=== PATIENT | male | born 1970 | race Caucasian/White ===

== ENCOUNTER 2024-08-04 00:22 | Inpatient (IN) | payer OTHER ==
[~2024-08-04] VITALS: Ht 182.9 cm; Wt 57.5 kg
[2024-08-04] MEDS ORDERED: INSU100I3 SQ (00:46)
[2024-08-04] MEDS ORDERED: GABA-529 PO (00:46)
[2024-08-04] MEDS ORDERED: ATOR40TA71 PO (00:46)
[2024-08-04 01:00] LABS: GLUCOMETER DEV NAME(LOC) ER.7; GLUCOSE,POINT OF CARE 93 MG/DL (70-110)
[2024-08-04] MEDS ORDERED: 0.9% SODIUM CHLORIDE 10 ML SYRINGE IVP PRN (01:00)
[2024-08-04] MEDS: SODIUM CHLORIDE 0.9% 1,800 ML IV ONE (01:02)
[2024-08-04 01:26] LABS: BASOPHILS % (AUTO) 2.5 % (0.0-2.0); EOSINOPHILS % (AUTO) 3.1 % (1.0-6.0); HEMATOCRIT 38.9 % (41-53); HEMOGLOBIN 12.9 g/dL (13.5-17.5); LYMPHOCYTES # (AUTO) 2.5 K/uL (1.0-4.8); LYMPHOCYTES % (AUTO) 31.2 % (22.0-44.0); MEAN CORPUSCULAR HGB CONC 33.1 G/dL (31.0-37.0); MEAN CORPUSCULAR VOLUME 91 fL (80-100); MONOCYTES # (AUTO) 0.6 K/uL (0.1-1.0); MONOCYTES % (AUTO) 7.6 % (2.0-9.0); NEUTROPHILS # (AUTO) 4.4 K/uL (1.8-7.7); NEUTROPHILS % (AUTO) 55.6 % (40.0-70.0); PLATELET COUNT (AUTO) 350 K/uL (150-450); RED BLOOD CELL COUNT(AUTO) 4.29 MIL/uL (4.50-5.90); RED CELL DISTRIBUTION WIDTH 16.6 % (11.5-14.5)
[2024-08-04 01:36] LABS: ANION GAP 5 mmol/L (8-16); CALCIUM, TOTAL 9.3 mg/dL (8.8-10.5); CARBON DIOXIDE 30 mmol/L (22-29); CHLORIDE 105 mmol/L (98-107); CREATININE 1.55 mg/dL (0.60-1.30); GLOMERULAR FILTR. RATE CALC 47 mL/min (>60); GLUCOSE,RANDOM 112 mg/dL (70-110); POTASSIUM 3.9 mmol/L (3.5-5.1); SODIUM SERUM 140 mmol/L (136-145); UREA NITROGEN, BLOOD 37 mg/dL (7-18)
[2024-08-04 01:43] LABS: TROPONIN I-HIGH SENSITIVITY 16 ng/L (<76)
[2024-08-04 01:44] LABS: PROTHROMBIN TIME 9.7 SEC (9.4-11.6)
[2024-08-04 01:50] LABS: ALANINE AMINOTRANSFERASE 17 U/L (12-78); ALBUMIN 2.8 g/dL (3.4-5.0); ALKALINE PHOSPHATASE 114 U/L (46-116); ASPARTATE AMINOTRANSFERASE 13 U/L (15-37); BILIRUBIN,TOTAL 0.2 mg/dL (0.1-1.0); TOTAL PROTEIN, SERUM 6.7 g/dL (6.4-8.2)
[2024-08-04 01:53] LABS: AMMONIA 12 umol/L (11-32)
[2024-08-04 02:01] LABS: LACTIC ACID 2.5 mmol/L (0.4-2.0)
[2024-08-04 02:02] LABS: B-TYPE NATRIURETIC PEPTIDE 129 pg/mL (0-100)
[2024-08-04 02:21] LABS: INFLUENZA TYPE A NEGATIVE FOR TYPE A (NEGATIVE); INFLUENZA TYPE B NEGATIVE FOR TYPE B (NEGATIVE)
[2024-08-04] MEDS: HALOPERIDOL LACTATE 5 MG/ML VIAL IM ONE (02:39)
[2024-08-04] MEDS: LORazepam 2 MG/ML VIAL IM ONE (02:39)
[2024-08-04] MEDS: DiphenhydrAMINE HCL 50 MG/ML VIAL IM ONE (02:39)
[2024-08-04 03:26] LABS: APPEARANCE,URINE CLEAR (CLEAR); BILIRUBIN,URINE NEGATIVE (NEGATIVE); COLOR,URINE LIGHT YELLOW (YELLOW); GLUCOSE, URINE (UA) >=1000 mg/dL (NEGATIVE); KETONES,URINE NEGATIVE (NEGATIVE); LEUKOCYTE ESTERASE ,URINE NEGATIVE (NEGATIVE); NITRATE,URINE NEGATIVE (NEGATIVE); OCCULT BLOOD,URINE TRACE (NEGATIVE); PROTEIN,URINE 300-600,SEE CONFIRM mg/dL (NEGATIVE); SPECIFIC GRAVITIY, URINE 1.028 (1.003-1.030); UROBILINOGEN,URINE <=1.0 mg/dL (<=1.0)
[2024-08-04 03:31] LABS: AMPHET/METH SCREEN,URINE POSITIVE (NEGATIVE); BARBITURATE SCREEN, URINE NEGATIVE (NEGATIVE); BENZODIAZEPINES SCREEN,URINE NEGATIVE (NEGATIVE); CANNABINOID SCREEN,URINE NEGATIVE (NEGATIVE); COCAINE SCREEN,URINE NEGATIVE (NEGATIVE); METHADONE SCREEN, URINE NEGATIVE (NEGATIVE); OPIATE SCREEN,URINE NEGATIVE (NEGATIVE); PHENCYCLIDINE SCREEN,URINE NEGATIVE (NEGATIVE)
[2024-08-04 03:35] LABS: ALCOHOL, URINE DRUG SCREEN NEGATIVE (NEGATIVE)
[2024-08-04 03:57] LABS: SULFOSALICYLIC ACID,URINE 3+ (Negative)
[2024-08-04 03:59] LABS: BACTERIA,URINE None Seen /HPF (None Seen); RBC,URINE 0-2 /HPF (0-2); SQUAMOUS EPITHELIAL CELL,UR None Seen /LPF (None Seen); WBC,URINE 0-2 /HPF (0-5)
[2024-08-04] MEDS: SODIUM CHLORIDE 0.9% 1,000 ML IV ONE (04:22)
[2024-08-04 12:50] VITALS: BP 124/66; PULSE 104; RESP 18; TEMP 99.8; O2SAT 100
[2024-08-04 15:26] VITALS: BP 135/80; PULSE 109; RESP 18; TEMP 98.3; O2SAT 100
[2024-08-04] MEDS ORDERED: DEXTROSE 50%-WATER 25 GM/50 ML SYRINGE IVP PRN (19:30)
[2024-08-04] MEDS: INSULIN LISPRO 100 UNITS/ML SQ ONE (19:56)
[2024-08-04 20:00] VITALS: BP 165/93; PULSE 82; RESP 18; TEMP 98.2; O2SAT 100
[2024-08-04] MEDS: INSULIN LISPRO 100 UNITS/ML SQ PRN (22:19)
[2024-08-04] MEDS ORDERED: ALBUTEROL SULFATE 2.5 MG/0.5 ML NEB SOLUTION NEB PRN (22:45)
[2024-08-04] MEDS ORDERED: ONDANSETRON HCL 4 MG/2 ML VIAL IVP PRN (22:45)
[2024-08-04] MEDS ORDERED: HYDROCODONE/ACETAMINOPHEN 5-325 MG TABLET PO PRN (22:45)
[2024-08-04] MEDS ORDERED: MORPHINE SULFATE 2 MG/ML SYRINGE IVP PRN (22:45)
[2024-08-04] MEDS ORDERED: BISACODYL 10 MG RECTAL RECTAL SUPPOSITORY PR PRN (22:45)
[2024-08-04] MEDS ORDERED: IPRATROPIUM BROMIDE 0.5 MG/2.5 ML NEB SOLUTION NEB PRN (22:45)
[2024-08-05] VITALS (8 sets, daily range): BP systolic 125–165; BP diastolic 60–93; PULSE 74–98; RESP 16–18; TEMP 97.5–98.4; O2SAT 95–100
[2024-08-05] MEDS: HEPARIN SODIUM,PORCINE 5,000 UNITS/ML VIAL SQ SCH
[2024-08-05] MEDS: DEXTROSE 5%-0.45% SODIUM CHL 1,000 ML IV SCH (00:12)
[2024-08-05 02:26] LABS: GLUCOMETER DEV NAME(LOC) 5S.1D; GLUCOSE,POINT OF CARE 365 MG/DL (70-110)
[2024-08-05 02:26] LABS: GLUCOMETER DEV NAME(LOC) 5S.1D; GLUCOSE,POINT OF CARE 499 MG/DL (70-110)
[2024-08-05 07:10] LABS: GLUCOMETER DEV NAME(LOC) 5S.1D; GLUCOSE,POINT OF CARE 326 MG/DL (70-110)
[2024-08-05] MEDS: PANTOPRAZOLE SODIUM 40 MG/VIAL IVP SCH (09:06)
[2024-08-05] MEDS: DOCUSATE SODIUM 100 MG CAPSULE PO SCH (09:09)
[2024-08-05] MEDS: ATORVASTATIN CALCIUM 40 MG TABLET PO SCH (09:09)
[2024-08-05] MEDS: GABAPENTIN 100 MG CAPSULE PO SCH (09:12)
[2024-08-05 11:05] LABS: GLUCOMETER DEV NAME(LOC) 5N.2C; GLUCOSE,POINT OF CARE 274 MG/DL (70-110)
[2024-08-05 16:46] LABS: BASOPHILS % (AUTO) 1.3 % (0.0-2.0); EOSINOPHILS % (AUTO) 3.6 % (1.0-6.0); HEMATOCRIT 29.8 % (41-53); HEMOGLOBIN 10.2 g/dL (13.5-17.5); LYMPHOCYTES # (AUTO) 2.2 K/uL (1.0-4.8); LYMPHOCYTES % (AUTO) 27.3 % (22.0-44.0); MEAN CORPUSCULAR HEMOGLOBIN 30.7 pg (26.0-34.0); MEAN CORPUSCULAR HGB CONC 34.3 G/dL (31.0-37.0); MEAN CORPUSCULAR VOLUME 90 fL (80-100); MONOCYTES # (AUTO) 0.7 K/uL (0.1-1.0); MONOCYTES % (AUTO) 8.9 % (2.0-9.0); NEUTROPHILS # (AUTO) 4.7 K/uL (1.8-7.7); NEUTROPHILS % (AUTO) 58.9 % (40.0-70.0); PLATELET COUNT (AUTO) 282 K/uL (150-450); RED BLOOD CELL COUNT(AUTO) 3.32 MIL/uL (4.50-5.90); RED CELL DISTRIBUTION WIDTH 16.6 % (11.5-14.5); WHITE BLOOD COUNT (AUTO) 7.9 K/uL (4.5-11.0)
[2024-08-05 16:50] LABS: GLUCOMETER DEV NAME(LOC) 5N.2C; GLUCOSE,POINT OF CARE 365 MG/DL (70-110)
[2024-08-05 16:55] LABS: CALCIUM, TOTAL 8.3 mg/dL (8.8-10.5); CREATININE 1.71 mg/dL (0.60-1.30)
[2024-08-05 17:08] LABS: ALBUMIN 2.1 g/dL (3.4-5.0); BILIRUBIN,TOTAL 0.4 mg/dL (0.1-1.0); TOTAL PROTEIN, SERUM 5.2 g/dL (6.4-8.2)
[2024-08-06] VITALS (7 sets, daily range): BP systolic 117–165; BP diastolic 47–111; PULSE 78–102; RESP 16–20; TEMP 97.8–100.9; O2SAT 96–100
[2024-08-06 06:46] LABS: GLUCOMETER DEV NAME(LOC) 5S.1D; GLUCOSE,POINT OF CARE 190 MG/DL (70-110)
[2024-08-06 06:46] LABS: GLUCOMETER DEV NAME(LOC) 5S.1D; GLUCOSE,POINT OF CARE 216 MG/DL (70-110)
[2024-08-06 07:08] LABS: BASOPHILS % (AUTO) 0.5 % (0.0-2.0); EOSINOPHILS % (AUTO) 1.4 % (1.0-6.0); HEMATOCRIT 32.6 % (41-53); HEMOGLOBIN 10.7 g/dL (13.5-17.5); LYMPHOCYTES # (AUTO) 0.9 K/uL (1.0-4.8); LYMPHOCYTES % (AUTO) 6.9 % (22.0-44.0); MEAN CORPUSCULAR HGB CONC 32.9 G/dL (31.0-37.0); MEAN CORPUSCULAR VOLUME 91 fL (80-100); MONOCYTES # (AUTO) 0.6 K/uL (0.1-1.0); MONOCYTES % (AUTO) 4.4 % (2.0-9.0); NEUTROPHILS # (AUTO) 11.5 K/uL (1.8-7.7); PLATELET COUNT (AUTO) 276 K/uL (150-450); RED BLOOD CELL COUNT(AUTO) 3.57 MIL/uL (4.50-5.90); RED CELL DISTRIBUTION WIDTH 16.7 % (11.5-14.5); WHITE BLOOD COUNT (AUTO) 13.3 K/uL (4.5-11.0)
[2024-08-06 07:15] LABS: NEUTROPHILS % (AUTO) 86.8 % (40.0-70.0)
[2024-08-06 07:32] LABS: ALBUMIN 2.2 g/dL (3.4-5.0); BILIRUBIN,TOTAL 0.4 mg/dL (0.1-1.0); CALCIUM, TOTAL 8.3 mg/dL (8.8-10.5); CREATININE 1.57 mg/dL (0.60-1.30); POTASSIUM 4.2 mmol/L (3.5-5.1); TOTAL PROTEIN, SERUM 5.3 g/dL (6.4-8.2)
[2024-08-06] MEDS: ACETAMINOPHEN 325 MG TABLET PO PRN (08:15)
[2024-08-06] MEDS ORDERED: LABETALOL HCL 5 MG/ML 20 ML VIAL IVP PRN (11:45)
[2024-08-06] MEDS ORDERED: DEXTROSE 50%-WATER 25 GM/50 ML SYRINGE IVP PRN (12:15)
[2024-08-06] MEDS: AmLODIPine BESYLATE 10 MG TABLET PO ONE (12:24)
[2024-08-06] MEDS: INSULIN GLARGINE,HUM.REC.ANLOG 100 UNITS/ML SQ SCH ×2 (12:26→21:41)
[2024-08-06] MEDS: INSULIN LISPRO 100 UNITS/ML SQ PRN (12:28)
[2024-08-06 12:55] LABS: COVID AG,FIA SOURCE NASAL SWAB
[2024-08-06 13:09] LABS: APPEARANCE,URINE CLEAR (CLEAR); BILIRUBIN,URINE NEGATIVE (NEGATIVE); COLOR,URINE LIGHT YELLOW (YELLOW); GLUCOSE, URINE (UA) >=1000 mg/dL (NEGATIVE); LEUKOCYTE ESTERASE ,URINE SMALL (NEGATIVE); NITRATE,URINE POSITIVE (NEGATIVE); OCCULT BLOOD,URINE SMALL (NEGATIVE); PH,URINE 5.5 (5.0-8.0); PROTEIN,URINE 100-200,SEE CONFIRM mg/dL (NEGATIVE); SPECIFIC GRAVITIY, URINE 1.019 (1.003-1.030); UROBILINOGEN,URINE <=1.0 mg/dL (<=1.0)
[2024-08-06 13:11] LABS: GLUCOMETER DEV NAME(LOC) 5S.2D; GLUCOSE,POINT OF CARE 316 MG/DL (70-110)
[2024-08-06 13:11] LABS: GLUCOMETER DEV NAME(LOC) 5S.2D; GLUCOSE,POINT OF CARE 469 MG/DL (70-110)
[2024-08-06 13:23] LABS: SULFOSALICYLIC ACID,URINE 2+ (Negative)
[2024-08-06 13:24] LABS: BACTERIA,URINE Few /HPF (None Seen); RBC,URINE 0-2 /HPF (0-2); SQUAMOUS EPITHELIAL CELL,UR Few /LPF (None Seen)
[2024-08-06 13:35] LABS: SARS-COV2 (COVID) ANTIGEN,FIA Negative (Negative)
[2024-08-06] MEDS ORDERED: SODIUM CHLORIDE 0.9% 250 ML IV ONE (15:51)
[2024-08-06] MEDS: CefTRIAXone 1 GM/DEXTROSE 50 ML IV SCH (15:57)
[2024-08-06 18:35] LABS: GLUCOMETER DEV NAME(LOC) 5S.1D; GLUCOSE,POINT OF CARE 431 MG/DL (70-110)
[2024-08-06] MEDS ORDERED: INSULIN GLARGINE,HUM.REC.ANLOG 100 UNITS/ML SQ SCH (21:00)
[2024-08-07 04:51] VITALS: BP 140/89; PULSE 89; RESP 18; TEMP 99.5; O2SAT 98
[2024-08-07 05:56] LABS: GLUCOMETER DEV NAME(LOC) 6N.1B; GLUCOSE,POINT OF CARE 354 MG/DL (70-110)
[2024-08-07 05:56] LABS: GLUCOMETER DEV NAME(LOC) 6N.1B; GLUCOSE,POINT OF CARE 195 MG/DL (70-110)
[2024-08-07 05:56] LABS: GLUCOMETER DEV NAME(LOC) 6N.1B; GLUCOSE,POINT OF CARE 374 MG/DL (70-110)
[2024-08-07 07:53] LABS: BASOPHILS % (AUTO) 0.8 % (0.0-2.0); EOSINOPHILS % (AUTO) 0.2 % (1.0-6.0); HEMATOCRIT 25.4 % (41-53); HEMOGLOBIN 8.7 g/dL (13.5-17.5); LYMPHOCYTES # (AUTO) 1.6 K/uL (1.0-4.8); MEAN CORPUSCULAR HEMOGLOBIN 30.5 pg (26.0-34.0); MEAN CORPUSCULAR HGB CONC 34.1 G/dL (31.0-37.0); MEAN CORPUSCULAR VOLUME 89 fL (80-100); MONOCYTES # (AUTO) 1.1 K/uL (0.1-1.0); MONOCYTES % (AUTO) 6.5 % (2.0-9.0); NEUTROPHILS # (AUTO) 13.5 K/uL (1.8-7.7); NEUTROPHILS % (AUTO) 82.5 % (40.0-70.0); PLATELET COUNT (AUTO) 212 K/uL (150-450); RED BLOOD CELL COUNT(AUTO) 2.84 MIL/uL (4.50-5.90); RED CELL DISTRIBUTION WIDTH 16.9 % (11.5-14.5); WHITE BLOOD COUNT (AUTO) 16.4 K/uL (4.5-11.0)
[2024-08-07 08:00] LABS: ALBUMIN 1.7 g/dL (3.4-5.0); BILIRUBIN,TOTAL 0.3 mg/dL (0.1-1.0); CALCIUM, TOTAL 7.9 mg/dL (8.8-10.5); CREATININE 1.42 mg/dL (0.60-1.30); POTASSIUM 3.6 mmol/L (3.5-5.1); TOTAL PROTEIN, SERUM 4.8 g/dL (6.4-8.2)
[2024-08-07 08:03] VITALS: BP 130/64; PULSE 91; RESP 18; TEMP 99.6; O2SAT 98
[2024-08-07] MEDS: AmLODIPine BESYLATE 10 MG TABLET PO SCH (08:26)
[2024-08-07 12:11] LABS: GLUCOMETER DEV NAME(LOC) 5S.1D; GLUCOSE,POINT OF CARE 417 MG/DL (70-110)
[2024-08-07] MEDS: INSULIN LISPRO 100 UNITS/ML SQ ONE (12:28)
[2024-08-07] MEDS: INSULIN GLARGINE,HUM.REC.ANLOG 100 UNITS/ML SQ SCH (12:32)
[2024-08-07] MEDS: AMPICILLIN SODIUM/SULBACTAM NA 1.5 GM in SODIUM CHLORIDE 0.9% 50 ML IV SCH (14:31)
[2024-08-07 15:32] VITALS: BP 122/71; PULSE 91; RESP 18; TEMP 100.2; O2SAT 99
[2024-08-07 17:20] VITALS: BP 129/65; PULSE 105; RESP 20; TEMP 101.3; O2SAT 97
[2024-08-07 17:21] LABS: GLUCOMETER DEV NAME(LOC) 6N.1B; GLUCOSE,POINT OF CARE 292 MG/DL (70-110)
[2024-08-07 21:15] VITALS: BP 117/66; PULSE 84; RESP 20; TEMP 99.7; O2SAT 99
[2024-08-07] MEDS: LINEZOLID 600 MG/ISO-OSM 300 ML IV ONE (23:36)
[2024-08-08] VITALS (10 sets, daily range): BP systolic 105–139; BP diastolic 51–92; PULSE 53–93; RESP 18–20; TEMP 98.4–99.1; O2SAT 97–99
[2024-08-08 07:20] LABS: GLUCOMETER DEV NAME(LOC) 4E.2; GLUCOSE,POINT OF CARE 137 MG/DL (70-110)
[2024-08-08 07:20] LABS: GLUCOMETER DEV NAME(LOC) 4E.2; GLUCOSE,POINT OF CARE 269 MG/DL (70-110)
[2024-08-08 07:44] LABS: BASOPHILS % (AUTO) 0.3 % (0.0-2.0); EOSINOPHILS % (AUTO) 0.5 % (1.0-6.0); HEMATOCRIT 25.8 % (41-53); HEMOGLOBIN 8.6 g/dL (13.5-17.5); LYMPHOCYTES # (AUTO) 1.1 K/uL (1.0-4.8); MEAN CORPUSCULAR HEMOGLOBIN 30.1 pg (26.0-34.0); MEAN CORPUSCULAR HGB CONC 33.4 G/dL (31.0-37.0); MEAN CORPUSCULAR VOLUME 90 fL (80-100); MONOCYTES # (AUTO) 0.5 K/uL (0.1-1.0); MONOCYTES % (AUTO) 3.4 % (2.0-9.0); NEUTROPHILS # (AUTO) 14.4 K/uL (1.8-7.7); PLATELET COUNT (AUTO) 190 K/uL (150-450); RED BLOOD CELL COUNT(AUTO) 2.86 MIL/uL (4.50-5.90); RED CELL DISTRIBUTION WIDTH 16.5 % (11.5-14.5); WHITE BLOOD COUNT (AUTO) 16.2 K/uL (4.5-11.0)
[2024-08-08 07:50] LABS: ALBUMIN 1.7 g/dL (3.4-5.0); BILIRUBIN,TOTAL 0.2 mg/dL (0.1-1.0); CALCIUM, TOTAL 7.8 mg/dL (8.8-10.5); CREATININE 1.98 mg/dL (0.60-1.30); POTASSIUM 3.6 mmol/L (3.5-5.1); TOTAL PROTEIN, SERUM 5.1 g/dL (6.4-8.2)
[2024-08-08 07:53] LABS: NEUTROPHILS % (AUTO) 88.8 % (40.0-70.0)
[2024-08-08] MEDS: PANTOPRAZOLE SODIUM 40 MG DR TABLET PO SCH (09:11)
[2024-08-08] MEDS: LINEZOLID 600 MG/ISO-OSM 300 ML IV SCH (11:10)
[2024-08-08] MEDS: SODIUM CHLORIDE 0.9% 1,000 ML IV ONE (11:11)
[2024-08-08] MEDS: INSULIN LISPRO 100 UNITS/ML SQ ONE (12:50)
[2024-08-08] MEDS: *CLINICAL-LEVOFLOXACIN IVPB DOSING CLINICAL ONE (13:32)
[2024-08-08 13:40] LABS: GLUCOMETER DEV NAME(LOC) 5S.1D; GLUCOSE,POINT OF CARE 515 MG/DL (70-110)
[2024-08-08] MEDS: SODIUM CHLORIDE 0.9% 1,000 ML IV SCH ×2 (13:55→15:15)
[2024-08-08 13:56] LABS: GLUCOMETER DEV NAME(LOC) 4E.2; GLUCOSE,POINT OF CARE 368 MG/DL (70-110)
[2024-08-08] MEDS: LEVOFLOXACIN 500 MG/D5% WATER 100 ML IV ONE (14:34)
[2024-08-08 14:39] LABS: CALCIUM, TOTAL 7.7 mg/dL (8.8-10.5); CREATININE 1.82 mg/dL (0.60-1.30); POTASSIUM 3.7 mmol/L (3.5-5.1)
[2024-08-08 17:15] LABS: CREATININE,URINE RANDOM 56.9 mg/dL (30.0-125.0)
[2024-08-08 17:16] LABS: % IRON SATURATION 10.8 % (30-44)
[2024-08-08 17:35] LABS: GLUCOMETER DEV NAME(LOC) 4E.2; GLUCOSE,POINT OF CARE 165 MG/DL (70-110)
[2024-08-08 19:46] LABS: GLUCOMETER DEV NAME(LOC) 4E.2; GLUCOSE,POINT OF CARE 194 MG/DL (70-110)
[2024-08-08] MEDS: INSULIN GLARGINE,HUM.REC.ANLOG 100 UNITS/ML SQ SCH (20:50)
[2024-08-08] MEDS: ZOLPIDEM TARTRATE 5 MG TABLET PO PRN (21:32)
[2024-08-08 21:35] LABS: GLUCOMETER DEV NAME(LOC) 5S.1D; GLUCOSE,POINT OF CARE 183 MG/DL (70-110)
[2024-08-09 00:21] LABS: GLUCOMETER DEV NAME(LOC) 5S.1D; GLUCOSE,POINT OF CARE 225 MG/DL (70-110)
[2024-08-09 04:17] VITALS: BP 119/69; PULSE 98; RESP 19; TEMP 97.8; O2SAT 99
[2024-08-09 04:31] LABS: GLUCOMETER DEV NAME(LOC) 5S.1D; GLUCOSE,POINT OF CARE 161 MG/DL (70-110)
[2024-08-09 07:45] LABS: BASOPHILS % (AUTO) 0.2 % (0.0-2.0); EOSINOPHILS % (AUTO) 0.7 % (1.0-6.0); HEMATOCRIT 24.4 % (41-53); HEMOGLOBIN 8.3 g/dL (13.5-17.5); LYMPHOCYTES # (AUTO) 0.8 K/uL (1.0-4.8); LYMPHOCYTES % (AUTO) 6.1 % (22.0-44.0); MEAN CORPUSCULAR HGB CONC 33.9 G/dL (31.0-37.0); MEAN CORPUSCULAR VOLUME 89 fL (80-100); MONOCYTES # (AUTO) 0.9 K/uL (0.1-1.0); MONOCYTES % (AUTO) 6.6 % (2.0-9.0); NEUTROPHILS # (AUTO) 11.3 K/uL (1.8-7.7); PLATELET COUNT (AUTO) 193 K/uL (150-450); RED BLOOD CELL COUNT(AUTO) 2.76 MIL/uL (4.50-5.90); RED CELL DISTRIBUTION WIDTH 16.2 % (11.5-14.5); WHITE BLOOD COUNT (AUTO) 13.1 K/uL (4.5-11.0)
[2024-08-09 07:50] LABS: NEUTROPHILS % (AUTO) 86.4 % (40.0-70.0)
[2024-08-09 07:57] LABS: ALBUMIN 1.5 g/dL (3.4-5.0); BILIRUBIN,TOTAL 0.2 mg/dL (0.1-1.0); CALCIUM, TOTAL 7.8 mg/dL (8.8-10.5); CREATININE 1.46 mg/dL (0.60-1.30); MAGNESIUM 1.8 mg/dL (1.80-2.40); PHOSPHORUS 2.4 mg/dL (2.5-4.9); POTASSIUM 3.7 mmol/L (3.5-5.1); TOTAL PROTEIN, SERUM 4.9 g/dL (6.4-8.2)
[2024-08-09 08:41] VITALS: BP 124/74; PULSE 84; RESP 18; TEMP 99.5; O2SAT 98
[2024-08-09 09:26] LABS: GLUCOMETER DEV NAME(LOC) 5S.1D; GLUCOSE,POINT OF CARE 111 MG/DL (70-110)
[2024-08-09] MEDS ORDERED: LEVOFLOXACIN 250 MG/D5% WATER 50 ML IV SCH (14:00)
[2024-08-09 15:46] LABS: GLUCOMETER DEV NAME(LOC) 5S.1D; GLUCOSE,POINT OF CARE 313 MG/DL (70-110)
[2024-08-09 16:12] VITALS: BP 140/75; PULSE 82; RESP 18; TEMP 98.6; O2SAT 98
[2024-08-09] MEDS: LEVOFLOXACIN 500 MG/D5% WATER 100 ML IV SCH (16:14)
[2024-08-09] MEDS: MAGNESIUM HYDROXIDE SUSPENSION 30 ML UDCUP PO PRN (16:15)
[2024-08-09 19:11] LABS: GLUCOMETER DEV NAME(LOC) 4E.2; GLUCOSE,POINT OF CARE 268 MG/DL (70-110)
[2024-08-09 19:51] LABS: GLUCOMETER DEV NAME(LOC) 5S.1D; GLUCOSE,POINT OF CARE 206 MG/DL (70-110)
[2024-08-09 20:35] VITALS: BP 147/71; PULSE 87; RESP 18; TEMP 98.1; O2SAT 99
[2024-08-09 21:55] LABS: GLUCOMETER DEV NAME(LOC) 4E.2; GLUCOSE,POINT OF CARE 237 MG/DL (70-110)
[2024-08-10 00:17] LABS: GLUCOMETER DEV NAME(LOC) 4E.2; GLUCOSE,POINT OF CARE 235 MG/DL (70-110)
[2024-08-10 05:15] VITALS: BP 163/87; PULSE 78; RESP 19; TEMP 98.7; O2SAT 96
[2024-08-10 05:55] LABS: GLUCOMETER DEV NAME(LOC) 5S.1D; GLUCOSE,POINT OF CARE 216 MG/DL (70-110)
[2024-08-10 07:49] LABS: BASOPHILS % (AUTO) 0.7 % (0.0-2.0); EOSINOPHILS % (AUTO) 1.7 % (1.0-6.0); HEMATOCRIT 26.3 % (41-53); HEMOGLOBIN 8.9 g/dL (13.5-17.5); LYMPHOCYTES # (AUTO) 1.4 K/uL (1.0-4.8); LYMPHOCYTES % (AUTO) 11.5 % (22.0-44.0); MEAN CORPUSCULAR HEMOGLOBIN 30.5 pg (26.0-34.0); MEAN CORPUSCULAR HGB CONC 33.9 G/dL (31.0-37.0); MEAN CORPUSCULAR VOLUME 90 fL (80-100); MONOCYTES # (AUTO) 1.1 K/uL (0.1-1.0); MONOCYTES % (AUTO) 9.4 % (2.0-9.0); NEUTROPHILS # (AUTO) 9.2 K/uL (1.8-7.7); NEUTROPHILS % (AUTO) 76.7 % (40.0-70.0); PLATELET COUNT (AUTO) 239 K/uL (150-450); RED BLOOD CELL COUNT(AUTO) 2.93 MIL/uL (4.50-5.90); RED CELL DISTRIBUTION WIDTH 16.6 % (11.5-14.5)
[2024-08-10 08:04] LABS: ALBUMIN 1.5 g/dL (3.4-5.0); BILIRUBIN,TOTAL 0.2 mg/dL (0.1-1.0); CALCIUM, TOTAL 8.1 mg/dL (8.8-10.5); CREATININE 1.4 mg/dL (0.60-1.30); MAGNESIUM 2.1 mg/dL (1.80-2.40); PHOSPHORUS 2.5 mg/dL (2.5-4.9); POTASSIUM 3.8 mmol/L (3.5-5.1); TOTAL PROTEIN, SERUM 5.1 g/dL (6.4-8.2)
[2024-08-10 08:44] VITALS: BP 129/90; PULSE 90; RESP 20; TEMP 98; O2SAT 100
[2024-08-10 11:51] LABS: GLUCOMETER DEV NAME(LOC) 4E.2; GLUCOSE,POINT OF CARE 156 MG/DL (70-110)
[2024-08-10] MEDS ORDERED: GABA-529 PO (14:08)
[2024-08-10] MEDS ORDERED: INSU100I3 SQ (14:08)
[2024-08-10] MEDS ORDERED: DOXY50 PO (14:08)
[2024-08-10] MEDS ORDERED: AMLO-258 PO (14:08)
[2024-08-10] MEDS ORDERED: INSLAN SQ (14:08)
== END 2024-08-10 14:20 | disposition home or self-care (01) | DRG 812 ==
LOC: EMS 00:23 → EDH 07:05 → 5S 12:09 → 4E 08-06 12:51
PROVIDERS: ADMIT Hospitalist; ATTEND Hospitalist
DX: T43.621A Poisoning by amphetamines, accidental (unintentional), initial encounter (principal); G92.8 Other toxic encephalopathy; N17.9 Acute kidney failure, unspecified; E11.22 Type 2 diabetes mellitus with diabetic chronic kidney disease; D64.9 Anemia, unspecified; E11.65 Type 2 diabetes mellitus with hyperglycemia; E78.00 Pure hypercholesterolemia, unspecified; N39.0 Urinary tract infection, site not specified; Z20.822 Contact with and (suspected) exposure to COVID-19; N18.9 Chronic kidney disease, unspecified; I12.9 Hypertensive chronic kidney disease with stage 1 through stage 4 chronic kidney disease, or unspecified chronic kidney disease; R00.0 Tachycardia, unspecified; E86.0 Dehydration; Z78.1 Physical restraint status; Z79.4 Long term (current) use of insulin; Z79.899 Other long term (current) drug therapy; Y92.89 Other specified places as the place of occurrence of the external cause; Y92.9 Unspecified place or not applicable
CPT/HCPCS: 70450; 71045; 76770; 80048; 80053; 80076; 80307; 81001; 81002; 82140; 82570; 82962; 83036; 83540; 83550; 83605; 83735; 83880; 84100; 84145; 84300; 84484; 84540; 85025; 85045; 85610; 87040; 87077; 87086; 87147; 87186; 87804; 92610; 93005; 97116; 97162; 97530; 99285; G0378; J0295; J0696; J1200; J1630; J1644; J1815; J1956; J2020; J2060; J2470; J3490; J7030; J7050; 36415-L1; 36415-TC

== ENCOUNTER 2025-01-03 14:54 | Emergency (ER) | payer OTHER ==
[~2025-01-03] VITALS: Ht 182.9 cm; Wt 68.2 kg
[~2025-01-03 14:54] MED LIST: AMLO-258 PO; ATOR40TA71 PO; DOXY50 PO; GABA-529 PO; INSLAN SQ; INSU100I3 SQ
[2025-01-03] MEDS ORDERED: AMLO5TAB66 PO (15:22)
[2025-01-03] MEDS ORDERED: INSNOV SQ (15:22)
[2025-01-03] MEDS ORDERED: GABA-1216 PO (15:22)
[2025-01-03] MEDS: DEXTROSE 50%-WATER 25 GM/50 ML SYRINGE IVP ONE (15:41)
[2025-01-03 16:38] LABS: ALANINE AMINOTRANSFERASE 6 U/L (12-78); ALBUMIN 2.6 g/dL (3.4-5.0); ALKALINE PHOSPHATASE 75 U/L (46-116); ASPARTATE AMINOTRANSFERASE 13 U/L (15-37); BILIRUBIN,TOTAL 0.4 mg/dL (0.1-1.0); TOTAL PROTEIN, SERUM 6.2 g/dL (6.4-8.2)
[2025-01-03 16:42] LABS: EOSINOPHILS % (AUTO) 1.8 % (1.0-6.0); HEMATOCRIT 32.1 % (41-53); HEMOGLOBIN 10.6 g/dL (13.5-17.5); LYMPHOCYTES % (AUTO) 8.6 % (22.0-44.0); MEAN CORPUSCULAR HGB CONC 33.1 G/dL (31.0-37.0); MEAN CORPUSCULAR VOLUME 88 fL (80-100); MONOCYTES # (AUTO) 0.7 K/uL (0.1-1.0); MONOCYTES % (AUTO) 6.5 % (2.0-9.0); NEUTROPHILS # (AUTO) 9.3 K/uL (1.8-7.7); NEUTROPHILS % (AUTO) 82.1 % (40.0-70.0); PLATELET COUNT (AUTO) 309 K/uL (150-450); RED BLOOD CELL COUNT(AUTO) 3.66 MIL/uL (4.50-5.90); RED CELL DISTRIBUTION WIDTH 16.4 % (11.5-14.5); WHITE BLOOD COUNT (AUTO) 11.4 K/uL (4.5-11.0)
[2025-01-03 16:46] LABS: ALCOHOL, BLOOD (SERUM) < 3 mg/dL (0-10)
[2025-01-03 16:56] LABS: CALCIUM, TOTAL 8.6 mg/dL (8.8-10.5); CREATININE 2.14 mg/dL (0.60-1.30); POTASSIUM 3.9 mmol/L (3.5-5.1)
[2025-01-03] MEDS ORDERED: ONDANSETRON HCL 4 MG/2 ML VIAL IVP PRN (17:15)
[2025-01-03] MEDS ORDERED: DEXTROSE 50%-WATER 25 GM/50 ML SYRINGE IVP PRN (17:15)
[2025-01-03] MEDS ORDERED: ZOLPIDEM TARTRATE 5 MG TABLET PO PRN (17:15)
[2025-01-03] MEDS ORDERED: ACETAMINOPHEN 325 MG TABLET PO PRN (17:15)
[2025-01-03] MEDS ORDERED: INSULIN LISPRO 100 UNITS/ML SQ PRN (17:15)
[2025-01-03] MEDS: AmLODIPine BESYLATE 5 MG TABLET PO SCH (17:24)
[2025-01-03] MEDS: SODIUM CHLORIDE 0.9% 1,000 ML IV ONE (17:24)
[2025-01-03 18:54] VITALS: BP 125/66; PULSE 91; RESP 16; TEMP 98.1; O2SAT 100
[2025-01-03] MEDS ORDERED: FAMOTIDINE 20 MG TABLET PO SCH (21:00)
[2025-01-03] MEDS ORDERED: DOCUSATE SODIUM 100 MG CAPSULE PO SCH (21:00)
[2025-01-04] MEDS ORDERED: HEPARIN SODIUM,PORCINE 5,000 UNITS/ML VIAL SQ SCH
== END 2025-01-03 19:04 | disposition left against medical advice (07) ==
LOC: EMS 14:54
DX: E11.649 Type 2 diabetes mellitus with hypoglycemia without coma (principal); E78.00 Pure hypercholesterolemia, unspecified; F17.210 Nicotine dependence, cigarettes, uncomplicated; Z79.4 Long term (current) use of insulin; Z79.899 Other long term (current) drug therapy; Z53.29 Procedure and treatment not carried out because of patient's decision for other reasons
CPT/HCPCS: 99291; 96374; 96361; 80048; 80076; 82962; 85025; 36415; 82948; 93005; G0480; J7030